=== PATIENT | male | born 1995 | race Caucasian/White ===

== ENCOUNTER 2019-05-09 18:02 | Emergency (ER) | payer SELFPAY ==
--- NOTE | 2019-05-09 18:02 | NUR ---
PT CALLED TO TRIAGE, PT NOT IN WAITING ROOM
--- NOTE | 2019-05-09 18:19 | NUR ---
PT CALLED TO TRIAGE, PT NOT IN WAITING ROOM
--- NOTE | 2019-05-09 18:28 | NUR ---
PT CALLED TO TRIAGE, PT NOT IN WAITING ROOM
== END 2019-05-09 18:29 | disposition left against medical advice (07) ==
LOC: ER 18:02
DX: Z53.21 Procedure and treatment not carried out due to patient leaving prior to being seen by health care provider (principal)